=== PATIENT | female | born 1930 | race Hispanic/Latino ===

== ENCOUNTER 2016-06-14 08:37 | Emergency (ER) | payer MEDICARE, OTHER ==
[2016-06-14 08:41] VITALS: BMI 19.5
[2016-06-14] MEDS ORDERED: Lidocaine 1% Inj (20ml) SC STA (09:12)
[2016-06-14] MEDS ORDERED: TDAP Vaccine 0.5 mL Syr IM ONE (09:12)
[2016-06-14] MEDS ORDERED: Bacitracin Ointment 30 GM TUBE TOP STA (09:12)
--- NOTE | 2016-06-14 09:16 | ED PDOC ---
Arrival/HPI - General Chief Complaint: Trauma Time Seen by Provider: 06/14/16 08:39 Historian: Patient - History of Present Illness Narrative History of Present Illness (Text): 06/14/16 09:11 Sofia Coy is a 86 year old female, with a history of COPD, hypertension, CAD, sleep apnea, frequent falls, anxiety and depression, presents to the emergency department complaining of laceration and pain to posterior head s/p mechanical fall prior to arrival. Patient states she lost her balance and fell backward hitting her head on an unknown object. Denies any loss of consciousness. Patient usually ambulates with a walker, but was not using one at the time of fall. Patient lives with her son, who helped her after the fall and called the ambulance. Denies any dizziness, chest pain, difficulty breathing , back pain, neck pain, numbness to extremity, or any other complaints at this time. PMD: . Time/Duration: Prior to Arrival Symptom Onset: Sudden Severity Level: Mild Activities at Onset: Significant Context: Slipped Past Medical History - Provider Review Nursing Documentation Reviewed: Yes - Infectious Disease Hx of Infectious Diseases: None - Tetanus Immunization Tetanus Immunization: Unknown - Cardiac Hx W[place]: No Hx Hypertension: Yes - Pulmonary Hx Chronic Obstructive Pulmonary Disease (COPD): Yes - Neurological Hx Transient Ischemic Attacks (TIA): No - HEENT Hx HEENT Disorder: No - Renal Hx Renal Disorder: No - Endocrine/Metabolic Hx Diabetes Mellitus Type 1: No Hx Diabetes Mellitus Type 2: No - Hematological/Oncological Hx Blood Disorders: No - Integumentary Hx Dermatological Disorder: No - Musculoskeletal/Rheumatological Hx Falls: Yes - Gastrointestinal Hx Gastrointestinal Disorders: No - Genitourinary/Gynecological Hx Genitourinary Disorders: No Hx Sexually Transmitted Diseases: No - Psychiatric Hx Anxiety: Yes Hx Depression: Yes Hx Substance Use: No - Surgical History Hx Hysterectomy: Yes - Anesthesia Hx Anesthesia: Yes Hx Anesthesia Reactions: No Hx Malignant Hyperthermia: No - Suicidal Assessment Feels Threatened In Home Enviroment: No Family/Social History - Physician Review Nursing Documentation Reviewed: Yes Family/Social History: No Known Family HX Smoking Status: Former Smoker Hx Alcohol Use: No Hx Substance Use: No Hx Substance Use Treatment: No Allergies/Home Meds Allergies/Adverse Reactions: Allergies No Known Allergies Allergy (Verified 09/21/15 15:46) Home Medications: Home Meds Medication Instructions Recorded Confirmed Furosemide [Lasix] 20 mg PO DAILY 07/21/14 01/19/16 Carvedilol [Coreg] 3.125 mg PO BID 05/20/15 01/19/16 Isosorbide Mononitrate [Isosorbide 30 mg PO DAILY 05/20/15 06/14/16 Mononitrate ER] Fluticasone/Salmeterol 250/50 1 dsk IH DAILY 09/21/15 06/14/16 [Advair Diskus 250/50] Tiotropium [place] Inhaler 1 inhaler INH DAILY 09/21/15 01/19/16 [Spiriva Inhalation Handihaler Device] Fludrocortisone [Florinef Acetate] 0.1 mg PO DAILY 01/18/16 06/14/16 clonazePAM [Klonopin] 1 mg PO TID 01/19/16 01/18/16 Review of Systems - Physician Review All systems were reviewed & negative as marked: Yes - Review of Systems Constitutional: Normal. absent: Fatigue, Fevers Respiratory: Normal. absent: SOB, Cough, Sputum Cardiovascular: Normal. absent: Chest Pain, Palpitations Gastrointestinal: Normal. absent: Abdominal Pain, Diarrhea, Nausea, Vomiting Genitourinary Female: Normal Musculoskeletal: Normal. absent: Back Pain, Neck Pain Neurological: Other (lac to posterior head ) Psychiatric: Normal Physical Exam Vital Signs Reviewed: Yes Vital Signs Temp Pulse Resp BP Pulse Ox 06/14/16 11:53 99.2 F 78 19 112/65 96 06/14/16 10:31 98.2 F 74 17 123/67 98 06/14/16 08:38 98.2 F 77 18 124/66 94 L Temperature: Afebrile Blood Pressure: Normal Pulse: Regular Respiratory Rate: Normal Appearance: Positive for: Well-Appearing, Non-Toxic, Comfortable Pain Distress: None Mental Status: Positive for: Alert and Oriented X 3 - Systems Exam Head: Present: Normocephalic, Other (5 cm laceration to posterior head ) Pupils: Present: PERRL Extroacular Muscles: Present: EOMI Conjunctiva: Present: Normal Ears: Present: Normal Mouth: Present: Moist Mucous Membranes Pharnyx: Present: Normal Nose (External): Present: Atraumatic Neck: Present: Normal Range of Motion. No: MIDLINE TENDERNESS, Paraspinal Tenderness Respiratory/Chest: Present: Clear to Auscultation, Good Air Exchange. No: Respiratory Distress, Accessory Muscle Use Cardiovascular: Present: Regular Rate and Rhythm, Normal S1, S2. No: Murmurs Abdomen: Present: Normal Bowel Sounds. No: Tenderness, Distention, Peritoneal Signs, Rebound, Guarding Back: Present: Normal Inspection. No: CVA Tenderness, Midline Tenderness, Paraspinal Tenderness Upper Extremity: Present: Normal Inspection. No: Cyanosis, Edema Lower Extremity: Present: Normal Inspection. No: Edema Neurological: Present: GCS=15, CN II-XII Intact, Speech Normal, Motor Func Grossly Intact, Normal Sensory Function, Gait Normal (at baseline) Skin: Present: Warm, Dry, Normal Color. No: Rashes Psychiatric: Present: Alert, Oriented x 3, Normal Insight, Normal Concentration Medical Decision Making ED Course and Treatment: 06/14/16 09:21 Impression: A 86 year old female who presents to the emergency department complaining of pain and laceration to posterior head following mechanical fall. DDx: Head Injury with laceration r/o ICH r/o Fracture Plan: -- CT cervical spine -- CT Head -- Bacitracin -- Lidocaine -- Boostrix -- Reassess and disposition Progress Notes: 06/14/16 11:20 CT cervical spine reviewed: IMPRESSION: No acute fractures however chronic compression deformities of the C5, T1, T2, T3 and most notably the T4 segments as described. Mild multilevel degenerative spondylosis most notably affecting C5-C6 and C6-C7 disc space levels ; there is however multilevel bilateral foraminal stenosis. Low-attenuation focus left lobe thyroid gland for which thyroid ultrasound is suggested as follow-up. Note also made of cortical irregularity of the right clavicular head with overlying soft tissue prominence. Clinic correlation with physical exam recommended to exclude on localized inflammatory or infectious process CT HEAD results reviewed: IMPRESSION: Limited study due to motion artifact as well as partial exclusion of the anterior cortical margin and portion of the inner table frontal calvarium. No acute intra hemorrhage. Mild chronic white matter ischemic changes. Moderate volume loss. 06/14/16 11:42 PROCEDURE: LACERATION REPAIR Performed by the emergency provider Location: posterior head Length: 5 cm Anesthesia: 4 ml Lidocaine 1% without epi. Description: clean wound edges, no foreign bodies, no active bleeding. Exploration: The wound was explored and no foreign bodies were found. Procedure: The wound was closed with 11 riki. There was good approximation. Post-Procedure: Good closure and hemostasis. The patient tolerated the procedure well and there were no complications. Post procedure dressing applied. 06/14/16 12:00 Prior to discharge, we were able to get patient to stand up without dizziness or lightheadedness. She had a few steps but doesn't walk well without her walker. Daughter was helping. Daughter will help patient get follow up with her primary care doctor tin 1-2days and knows that she needs staple removal in 7- 10days. Gave daughter specific instructions for symptoms to look for after a head injury such as nausea/vomiting, change in mental status, seizures or any other concern. Daughter also confirmed that patient is not on blood thinners. - RAD Interpretation Narrative RAD Interpretations (Text): CT HEAD results reviewed: FINDINGS: HEMORRHAGE: No acute parenchymal, subarachnoid or extra-axial hemorrhage. BRAIN: mild chronic periventricular white matter ischemic changes are seen extending peripherally into the deep white matter both cerebral hemispheres. Mild vascular calcifications. VENTRICLES: Moderate generalized volume loss. No evidence of obstructive hydrocephalus. CALVARIUM: Note that a portion of the anterior cortical margin and the inner table of the frontal bone is partially excluded on on axial CT imaging due to patient positioning however no definitive evidence of acute fracture or depressed skull fractures are identified. PARANASAL SINUSES: There appears to be postoperative changes involving the nasal cavity and medial pastor both maxillary antra. Clinical correlation with surgical history recommended. MASTOID AIR CELLS: The sclerosis and under pneumatization of both mastoid air complexes right greater than left OTHER FINDINGS: None. IMPRESSION: Limited study due to motion artifact as well as partial exclusion of the anterior cortical margin and portion of the inner table frontal calvarium. No acute intra hemorrhage. Mild chronic white matter ischemic changes. Moderate volume loss. 06/14/16 11:19 CT Cervical Spine results reviewed: FINDINGS: VERTEBRAE: No acute compression fractures no retropulsed fragments so far as can be seen involving the cervical segments however there does appear to be chronic appearing anterior wedge deformity of the C5, T1, T2 T3 segments. Moderate chronic appearing compression deformity of the T4 segment. These deformities are likely on the etiology of the significant flexion deformity of the cervical spine. DISCS/SPINAL CANAL/NEURAL FORAMINA: Multilevel degenerative spondylosis. Changes include varying degrees of moderate to fairly significant disc space narrowing with endplate eburnation and anterolateral as well as smaller posterior osteophyte formation. Uncovertebral facet arthropathy the latter more significant than the former. Changes result and more significant bilateral foraminal stenosis and mild central canal narrowing at the C6 and C6-C7 levels and less so the remaining levels. PARASPINAL SOFT TISSUES: Unremarkable. Prevertebral and paraspinal soft tissues unremarkable. OTHER FINDINGS: Lung apices are clear. Small subpleural nodular density right lung apex Note made of an elliptical shaped low-attenuation focus with irregular borders left lobe thyroid gland. Followup thyroid ultrasound could be performed for further evaluation if necessary. Note also made of cortical irregularity of the right clavicular head with overlying soft tissue prominence. Clinic correlation with physical exam recommended to exclude on localized inflammatory or infectious process IMPRESSION: No acute fractures however chronic compression deformities of the C5, T1, T2, T3 and most notably the T4 segments as described. Mild multilevel degenerative spondylosis most notably affecting C5-C6 and C6-C7 disc space levels ; there is however multilevel bilateral foraminal stenosis. Low-attenuation focus left lobe thyroid gland for which thyroid ultrasound is suggested as follow-up. Note also made of cortical irregularity of the right clavicular head with overlying soft tissue prominence. Clinic correlation with physical exam recommended to exclude on localized inflammatory or infectious process Radiology Orders: 06/14/16 09:12 CERVICAL SPINE W/O CONTRAST [CT] Stat HEAD W/O CONTRAST [CT] Stat Electronics Research Engineer: Radiologist - Medication Orders Current Medication Orders: Discontinued Medications Bacitracin (Bacitracin) 0 gm TOP STAT STA Stop: 06/14/16 09:13 Last Admin: 06/14/16 09:22 Dose: 0.5 ml Lidocaine HCl (Lidocaine 1% (20ml)) 0 ml SC STAT STA Stop: 06/14/16 09:13 Last Admin: 06/14/16 09:23 Dose: 0.5 ml Tetanus/Reduced Diphtheria/Acell Pertussis (Boostrix Vaccine Inj) 0.5 ml IM .ONCE ONE Stop: 06/14/16 09:13 Last Admin: 06/14/16 09:20 Dose: 0.5 ml - Scribe Statement The provider has reviewed the documentation as recorded by the Robert Friedman Provider Attestation: All medical record entries made by the Robert were at my direction and personally dictated by me. I have reviewed the chart and agree that the record accurately reflects my personal performance of the history, physical exam, medical decision making, and the department course for this patient. I have also personally directed, reviewed, and agree with the discharge instructions and disposition. Disposition/Present on Arrival - Present on Arrival Any Indicators Present on Arrival: No History of DVT/PE: No History of Uncontrolled Diabetes: No Urinary Catheter: No History of Decub. Ulcer: No History Surgical Site Infection Following: None - Disposition Have Diagnosis and Disposition been Completed?: Yes Diagnosis: Fall, Head injury, Laceration Disposition: HOME/ ROUTINE Disposition Time: 12:07 Patient Plan: Discharge Condition: IMPROVED Discharge Instructions (ExitCare): Head Injury (ED), Staple Care (ED) Additional Instructions: Ms Coy and daughter, thank you for letting us take care of you today. Your provider was Dr. Nova. You were treated for Mechanical Fall, Head Injury with [place]. The emergency medical care you received today was directed at your acute symptoms. If you were prescribed any medication, please fill it and take as directed. It may take several days for your symptoms to resolve. Return to the Emergency Department if your symptoms worsen, do not improve, or if you have any other problems. Please contact your doctor or call one of the physicians/clinics you have been referred to that are listed on the Patient Visit Information form that is included in your discharge packet. Bring any paperwork you were given at discharge with you along with any medications you are taking to your follow up visit. Our treatment cannot replace ongoing medical care by a primary care provider (PCP) outside of the emergency department. Thank you for allowing the [facility] team to be part of your care today. If you had an X-Ray or CT scan: A Radiologist will review the ED reading if any change in treatment is needed we will contact you. If you had a blood, urine, or wound culture: It will take several days for the results, if any change in treatment is needed we will contact you. If you had an STI test: It will take 48 hours for the results. Please call after 1 week if you have not heard back. Referrals: Dion Carvalho MD [Family Provider] - Follow up with primary
--- NOTE | 2016-06-14 10:53 | CT ---
PROCEDURE: CT HEAD WITHOUT CONTRAST. HISTORY: fall with head injury COMPARISON: Comparison CT scan brain 09/21/2015 TECHNIQUE: Axial computed tomography images were obtained through the head/brain without intravenous contrast. Note that the examination is limited due to some motion artifact as well as partial exclusion of the anterior cortex and a portion of the inner table of the frontal calvarium due to patient positioning. Radiation dose: Total exam DLP = 725.84 mGy-cm. This CT exam was performed using one or more of the following dose reduction techniques: Automated exposure control, adjustment of the mA and/or kV according to patient size, and/or use of iterative reconstruction technique. FINDINGS: HEMORRHAGE: No acute parenchymal, subarachnoid or extra-axial hemorrhage. BRAIN: mild chronic periventricular white matter ischemic changes are seen extending peripherally into the deep white matter both cerebral hemispheres. Mild vascular calcifications. VENTRICLES: Moderate generalized volume loss. No evidence of obstructive hydrocephalus. CALVARIUM: Note that a portion of the anterior cortical margin and the inner table of the frontal bone is partially excluded on on axial CT imaging due to patient positioning however no definitive evidence of acute fracture or depressed skull fractures are identified. PARANASAL SINUSES: There appears to be postoperative changes involving the nasal cavity and medial pastor both maxillary antra. Clinical correlation with surgical history recommended. MASTOID AIR CELLS: The sclerosis and under pneumatization of both mastoid air complexes right greater than left OTHER FINDINGS: None. IMPRESSION: Limited study due to motion artifact as well as partial exclusion of the anterior cortical margin and portion of the inner table frontal calvarium. No acute intra hemorrhage. Mild chronic white matter ischemic changes. Moderate volume loss.
--- NOTE | 2016-06-14 11:06 | CT ---
PROCEDURE: CT Cervical Spine without contrast HISTORY: <fall with head injury> COMPARISON: None available. TECHNIQUE: Axial computed tomography images were obtained of the cervical spine without the use of intravenous contrast. Coronal and sagittal reformatted images were created and reviewed. Note that the study is limited due to flexion and rotation of the head to the right side with distortion of the cervical spine Radiation dose: Total exam DLP = 434.74 mGy-cm. This CT exam was performed using one or more of the following dose reduction techniques: Automated exposure control, adjustment of the mA and/or kV according to patient size, and/or use of iterative reconstruction technique. FINDINGS: VERTEBRAE: No acute compression fractures no retropulsed fragments so far as can be seen involving the cervical segments however there does appear to be chronic appearing anterior wedge deformity of the C5, T1, T2 T3 segments. Moderate chronic appearing compression deformity of the T4 segment. These deformities are likely on the etiology of the significant flexion deformity of the cervical spine. DISCS/SPINAL CANAL/NEURAL FORAMINA: Multilevel degenerative spondylosis. Changes include varying degrees of moderate to fairly significant disc space narrowing with endplate eburnation and anterolateral as well as smaller posterior osteophyte formation. Uncovertebral facet arthropathy the latter more significant than the former. Changes result and more significant bilateral foraminal stenosis and mild central canal narrowing at the C6 and C6-C7 levels and less so the remaining levels. PARASPINAL SOFT TISSUES: Unremarkable. Prevertebral and paraspinal soft tissues unremarkable. OTHER FINDINGS: Lung apices are clear. Small subpleural nodular density right lung apex Note made of an elliptical shaped low-attenuation focus with irregular borders left lobe thyroid gland. Followup thyroid ultrasound could be performed for further evaluation if necessary. Note also made of cortical irregularity of the right clavicular head with overlying soft tissue prominence. Clinic correlation with physical exam recommended to exclude on localized inflammatory or infectious process IMPRESSION: No acute fractures however chronic compression deformities of the C5, T1, T2, T3 and most notably the T4 segments as described. Mild multilevel degenerative spondylosis most notably affecting C5-C6 and C6-C7 disc space levels ; there is however multilevel bilateral foraminal stenosis. Low-attenuation focus left lobe thyroid gland for which thyroid ultrasound is suggested as follow-up. Note also made of cortical irregularity of the right clavicular head with overlying soft tissue prominence. Clinic correlation with physical exam recommended to exclude on localized inflammatory or infectious process
[2016-06-14 11:55] VITALS: BP 112/65; PULSE 78; RESP 19; TEMP 99.2; O2SAT 96
== END 2016-06-14 12:07 | disposition home or self-care (01) ==
LOC: ED 08:37
DX: S09.90XA Unspecified injury of head, initial encounter (principal); S01.91XA Laceration without foreign body of unspecified part of head, initial encounter; W19.XXXA Unspecified fall, initial encounter; Z91.81 History of falling; Z23 Encounter for immunization; I10 Essential (primary) hypertension; J44.9 Chronic obstructive pulmonary disease, unspecified; I25.10 Atherosclerotic heart disease of native coronary artery without angina pectoris

== ENCOUNTER 2016-06-21 09:18 | Emergency (ER) | payer MEDICARE, OTHER ==
[2016-06-21 09:29] VITALS: BP 118/73; PULSE 93; RESP 18; TEMP 99.2; O2SAT 94; BMI 21.9
--- NOTE | 2016-06-21 10:12 | ED PDOC ---
Arrival/HPI - General Chief Complaint: Suture/Staple Removal Time Seen by Provider: 06/21/16 09:51 Historian: Patient - History of Present Illness Narrative History of Present Illness (Text): 06/21/16 10:06 Patient presents for wound check and staple removal to the scalp, riki were placed 7 days ago. Denies any fever, chills, headache, pain, redness, swelling, discharge to the area. Past Medical History - Provider Review Nursing Documentation Reviewed: Yes - Infectious Disease Hx of Infectious Diseases: None - Tetanus Immunization Tetanus Immunization: Unknown - Reproductive Menopause: Yes - Cardiac Hx [place]: No Hx Hypertension: Yes - Pulmonary Hx Chronic Obstructive Pulmonary Disease (COPD): Yes - Neurological Hx Transient Ischemic Attacks (TIA): No - HEENT Hx HEENT Disorder: No - Renal Hx Renal Disorder: No - Endocrine/Metabolic Hx Diabetes Mellitus Type 1: No Hx Diabetes Mellitus Type 2: No - Hematological/Oncological Hx Blood Disorders: No - Integumentary Hx Dermatological Disorder: No - Musculoskeletal/Rheumatological Hx Falls: Yes - Gastrointestinal Hx Gastrointestinal Disorders: No - Genitourinary/Gynecological Hx Genitourinary Disorders: No Hx Sexually Transmitted Diseases: No - Psychiatric Hx Anxiety: Yes Hx Depression: Yes Hx Substance Use: No - Surgical History Hx Hysterectomy: Yes - Anesthesia Hx Anesthesia: Yes Hx Anesthesia Reactions: No Hx Malignant Hyperthermia: No - Suicidal Assessment Feels Threatened In Home Enviroment: No Family/Social History - Physician Review Nursing Documentation Reviewed: Yes Family/Social History: No Known Family HX Smoking Status: Former Smoker Hx Alcohol Use: No Hx Substance Use: No Hx Substance Use Treatment: No Allergies/Home Meds Allergies/Adverse Reactions: Allergies No Known Allergies Allergy (Verified 06/21/16 09:29) Home Medications: Home Meds Medication Instructions Recorded Confirmed Furosemide [Lasix] 20 mg PO DAILY 07/21/14 06/21/16 Carvedilol [Coreg] 3.125 mg PO BID 05/20/15 06/21/16 Isosorbide Mononitrate [Isosorbide 30 mg PO DAILY 05/20/15 06/21/16 Mononitrate ER] Fluticasone/Salmeterol 250/50 1 dsk IH DAILY 09/21/15 06/21/16 [Advair Diskus 250/50] Tiotropium [place] Inhaler 1 inhaler INH DAILY 09/21/15 06/21/16 [Spiriva Inhalation Handihaler Device] Fludrocortisone [Florinef Acetate] 0.1 mg PO DAILY 01/18/16 06/21/16 clonazePAM [Klonopin] 1 mg PO TID 01/19/16 06/21/16 Review of Systems - Review of Systems Constitutional: Normal. absent: Fatigue, Weight Change, Fevers Musculoskeletal: Normal. absent: Arthralgias, Back Pain, Neck Pain Skin: Normal, Laceration (prior laceration to scalp ). absent: Rash, Pruritis, Skin Lesions Neurological: Normal. absent: Headache, Dizziness, Focal Weakness Physical Exam Vital Signs Reviewed: Yes Vital Signs Temp Pulse Resp BP Pulse Ox 06/21/16 09:25 99.2 F 93 H 18 118/73 94 L Appearance: Positive for: Well-Appearing, Comfortable Pain Distress: None Mental Status: Positive for: Alert and Oriented X 3 - Systems Exam Head: Present: Atraumatic, Normocephalic, Other (healing stapled wound to the parietal scalp). No: Swelling, Ecchymosis, Abrasion Pupils: Present: PERRL Conjunctiva: Present: Normal Ears: Present: Normal Mouth: Present: Moist Mucous Membranes Pharnyx: Present: Normal. No: ERYTHEMA, EXUDATE Neck: Present: Normal Range of Motion. No: MIDLINE TENDERNESS, Paraspinal Tenderness Skin: Present: Warm, Dry, Normal Color. No: Rashes Medical Decision Making ED Course and Treatment: 06/21/16 10:09 86 yo F presents with wound check and staple removal to the parietal scalp. Milam removed by PA with no complications. Wound looks well with no signs of infection or wound dehiscence. Based on history and exam, plan will be for patient follow-up. Patient states she fully agrees with and understands discharge instructions. States that she agrees with the plan and disposition. Verbalized and repeated discharge instructions and plan. I have given the patient opportunity to ask any additional questions. Follow up with primary care physician in 1-2 days without fail. Return to the emergency room at any time for any new or worsening symptoms. - PA / VB NET DEVELOPER / Resident Statement MD/DO has reviewed & agrees with the documentation as recorded. Disposition/Present on Arrival - Present on Arrival Any Indicators Present on Arrival: No History of DVT/PE: No History of Uncontrolled Diabetes: No Urinary Catheter: No History of Decub. Ulcer: No History Surgical Site Infection Following: None - Disposition Have Diagnosis and Disposition been Completed?: Yes Diagnosis: Visit for wound check, Removal of staple Disposition: HOME/ ROUTINE Disposition Time: 10:13 Patient Plan: Discharge Condition: GOOD Discharge Instructions (ExitCare): Acute Wound Care (ED) Print Language: LAO Additional Instructions: Thank you for letting us take care of you today. You were treated for wound check, staple removal. The emergency medical care you received today was directed at your acute symptoms. Return to the Emergency Department if your symptoms worsen, do not improve, or if you have any other problems. Please contact your doctor in 2 days for re-evaluation and follow up. Bring any paperwork you were given at discharge with you along with any medications you are taking to your follow up visit. Our treatment cannot replace ongoing medical care by a primary care provider (PCP) outside of the emergency department. Thank you for allowing the [employer] team to be part of your care today.
== END 2016-06-21 10:30 | disposition home or self-care (01) ==
LOC: ED 09:18
DX: Z48.02 Encounter for removal of sutures (principal)

== ENCOUNTER 2017-04-18 19:00 | Inpatient (IN) | payer MEDICARE, OTHER ==
[2017-04-18 19:05] VITALS: BMI 30.9
--- NOTE | 2017-04-18 19:54 | ED PDOC ---
Arrival/HPI - General Chief Complaint: Female Genitourinary Time Seen by Provider: 04/18/17 19:04 Historian: Patient, Family, Other (transfer from OSH) - History of Present Illness Narrative History of Present Illness (Text): 87yoF, DNR, COPD, who uses O2 at night, with son and who was transferred from outside hospital for trip/fall on papers, landed on left side, without loc, with chest xray, left humerus, left shoulder xray showing left shoulder fracture with arm in sling, ct head chronic microvascular ischemic changes/ small chronic left subinsular infarct/no ICH, noted for has malodorous urine, ECG in SR, POC labs Gluc 130, Cr 1.0, AG 15, Trop 0.03, Na 137, K 4.3, CL 98, Co2 29, Lactate 2.02, Wbc 6.9, Hb 11, Plts 92, influenza neg, urine positive nitrite, given rocephin. pt now transferred here wo n/v/coker/dizziness/sob/chest pain/abdomen pain/numbness/tingling. 04/18/17 19:47 Time/Duration: 4-6 hours Symptom Onset: Gradual Symptom Course: Improving Quality: Aching Severity Level: 1 Activities at Onset: Rest Context: Sitting Past Medical History - Provider Review Nursing Documentation Reviewed: Yes - Travel History Have you recently traveled outside [place] w/in the past 3 mons?: No - Infectious Disease Hx of Infectious Diseases: None - Tetanus Immunization Tetanus Immunization: Unknown - Reproductive Menopause: Yes - Cardiac Hx [place]: No Hx Hypertension: Yes - Pulmonary Hx Chronic Obstructive Pulmonary Disease (COPD): Yes - Neurological Hx Transient Ischemic Attacks (TIA): No - HEENT Hx HEENT Disorder: No - Renal Hx Renal Disorder: No - Endocrine/Metabolic Hx Diabetes Mellitus Type 1: No Hx Diabetes Mellitus Type 2: No - Hematological/Oncological Hx Blood Disorders: No - Integumentary Hx Dermatological Disorder: No - Musculoskeletal/Rheumatological Hx Falls: Yes - Gastrointestinal Hx Gastrointestinal Disorders: No - Genitourinary/Gynecological Hx Genitourinary Disorders: No Hx Sexually Transmitted Diseases: No Hx Urinary Tract Infection: Yes - Psychiatric Hx Anxiety: Yes Hx Depression: Yes Hx Substance Use: No - Surgical History Hx Hysterectomy: Yes - Anesthesia Hx Anesthesia: Yes Hx Anesthesia Reactions: No Hx Malignant Hyperthermia: No - Suicidal Assessment Feels Threatened In Home Enviroment: No Family/Social History - Physician Review Nursing Documentation Reviewed: Yes Family/Social History: No Known Family HX Smoking Status: Former Smoker Hx Alcohol Use: No Hx Substance Use: No Hx Substance Use Treatment: No Allergies/Home Meds Allergies/Adverse Reactions: Allergies No Known Allergies Allergy (Verified 04/18/17 19:22) Home Medications: Home Meds Medication Instructions Recorded Confirmed Furosemide [Lasix] 20 mg PO DAILY 07/21/14 04/18/17 Carvedilol [Coreg] 3.125 mg PO BID 05/20/15 04/18/17 Isosorbide Mononitrate [Isosorbide 30 mg PO DAILY 05/20/15 04/18/17 Mononitrate ER] Fluticasone/Salmeterol 250/50 1 dsk IH DAILY 09/21/15 04/18/17 [Advair Diskus 250/50] Tiotropium [place] Inhaler 1 inhaler INH DAILY 09/21/15 04/18/17 [Spiriva Inhalation Handihaler Device] Fludrocortisone [Florinef Acetate] 0.1 mg PO DAILY 01/18/16 04/18/17 clonazePAM [Klonopin] 1 mg PO TID 01/19/16 04/18/17 Review of Systems - Review of Systems Constitutional: Normal Eyes: Normal ENT: Normal Respiratory: Normal Cardiovascular: Normal Gastrointestinal: Normal Genitourinary Female: Normal Musculoskeletal: Other (left shoulder fracture) Skin: Normal Neurological: Normal Endocrine: Normal Hemo/Lymphatic: Normal Psychiatric: Normal Physical Exam Vital Signs Reviewed: Yes Vital Signs Temp Pulse Resp BP Pulse Ox 04/18/17 21:08 83 18 99/60 L 96 04/18/17 19:16 88 20 95/52 L 97 04/18/17 19:08 98.6 F 86 18 95/48 L 95 Temperature: Afebrile Blood Pressure: Hypotensive Pulse: Regular Respiratory Rate: Normal Appearance: Positive for: Well-Appearing, Non-Toxic, Comfortable Pain Distress: None Mental Status: Positive for: Alert and Oriented X 3 - Systems Exam Head: Present: Atraumatic, Normocephalic Pupils: Present: PERRL Extroacular Muscles: Present: EOMI Conjunctiva: Present: Normal Ears: Present: Normal Mouth: Present: Moist Mucous Membranes Pharnyx: Present: Normal Nose (External): Present: Atraumatic Nose (Internal): Present: Normal Inspection Neck: Present: Normal Range of Motion, Other (no c-t-l spinal or paraspinal tenderness) Respiratory/Chest: Present: Clear to Auscultation, Good Air Exchange Cardiovascular: Present: Regular Rate and Rhythm Abdomen: No: Tenderness, Distention, Normal Bowel Sounds, Peritoneal Signs, Rebound, Guarding, McBurney's Point Tender, Rovsing's Sign Present, Hernias, Feeding Tubes, Ostomy Tubes, Mass/Organomegaly, Scars, Other Upper Extremity: Present: Other (left upper extremity in sling, with warm/ sensation/cap refill/radial pulse+ wo any other bony tenderness.) Lower Extremity: Present: Normal Inspection Neurological: Present: GCS=15, CN II-XII Intact, Speech Normal, Motor Func Grossly Intact Skin: Present: Warm, Normal Color Psychiatric: Present: Alert, Oriented x 3, Normal Insight, Normal Concentration Medical Decision Making ED Course and Treatment: 87yoF, DNR, COPD, who uses O2 at night, with son and who was transferred from outside hospital for trip/fall on papers, landed on left side, without loc, with chest xray, left humerus, left shoulder xray showing left shoulder fracture with arm in sling, ct head chronic microvascular ischemic changes/ small chronic left subinsular infarct/no ICH, noted for has malodorous urine, ECG in SR, POC labs Gluc 130, Cr 1.0, AG 15, Trop 0.03, Na 137, K 4.3, CL 98, Co2 29, Lactate 2.02, Wbc 6.9, Hb 11, Plts 92, influenza neg, urine positive nitrite, given rocephin. pt now transferred here wo n/v/coker/dizziness/sob/chest pain/abdomen pain/numbness/tingling for transferred/accepted by Dr. Johnson. loading CD rom with chest xray, left humerus, left shoulder xray showing left shoulder fracture with arm in sling, ct head chronic microvascular ischemic changes/small chronic left subinsular infarct/no ICH. Left shoulder left proximal humerus fracture Left humerus left proximal humerus fracture CXR FINDINGS: Limitations: Radiographic technique - mild. Lungs: Minimal patchy opacity right lung base. Pleural space: No definite pleural effusion. No pneumothorax. Heart: No cardiomegaly. Mediastinum: Apparent mild prominence of central pulmonary vasculature. Tortuosity and atherosclerosis of thoracic aorta. Bones/joints: No acute fracture. Tubes, lines and devices: Leads overlying chest. Upper abdomen: Surgical clips within RIGHT upper quadrant. IMPRESSION: 1. Probable mild pulmonary vascular congestion. Clinical correlation is needed. 2. Right basilar atelectasis versus early pneumonia. 3. Incidental/non-acute findings are described above. 04/18/17 20:30 wbc 6.8 hb 9 plts 90 lactic 0.9 trop indeterminate 0.05 calcium 7.7 04/18/17 21:00 04/18/17 21:[address] Carvalho, who stated 87F, left shoulder fracture, uti, questionable cxr - recieved 1gm rocephin outside hospital and can continue daily with cx's to follow, consult Dr. Alston orthopedcis who stated maintain sling and keep pt 30 degrees in bed, consult Dr. Whaley psychiatry for risperadone use in the am, admit to remote telemetry. 04/18/17 21:28 Reassessment Condition: Improved - Lab Interpretations Lab Results: 04/18/17 20:05 04/18/17 20:05 Lab Results 04/18/17 21:00: Urine Color Yellow, Urine Appearance Sl cloudy, Urine pH 6.5, Ur Specific [place] 1.020, Urine Protein 100 H, Urine Glucose (UA) Negative, Urine Ketones Negative, Urine Blood Small H, Urine Nitrate Positive H, Urine Bilirubin Negative, Urine Urobilinogen 1.0 H, Ur Leukocyte Esterase Moderate H, Urine RBC 2 - 5, Urine WBC 15 - 20, Ur Epithelial Cells Many, Urine Bacteria Mod 04/18/17 20:05: Sodium 138, Chloride 102, Potassium 3.7, Carbon Dioxide 28, Anion Gap 11, BUN 31 H, Creatinine 0.8, Est GFR ( Amer) > 60, Est GFR ( Non-Af Amer) > 60, Random Glucose 154 H, Calcium 7.7 L, Phosphorus 3.3, Magnesium 2.2, Total Bilirubin 0.5, AST 35, ALT 40, Alkaline Phosphatase 98, Total Creatine Kinase 148, Troponin I 0.05 D, Total Protein 5.8, Albumin 2.7 L , Globulin 3.2, Albumin/Globulin Ratio 0.8 L 04/18/17 20:05: pO2 223 H, VBG pH 7.46 H, VBG pCO2 42.0, VBG HCO3 29.9 H, VBG Total CO2 31.2 H, VBG O2 Sat (Calc) 100.3 H, VBG Base Excess 5.4 H, VBG Potassium 3.8, Sodium 135.0, Chloride 105.0, Glucose 160 H, Lactate 0.9, FiO2 21.0, Venous Blood Potassium 3.8 04/18/17 20:05: PT 15.1 H, INR 1.32 H, APTT 27.3 04/18/17 20:05: WBC 6.8 D, RBC 2.98 L, Hgb 9.4 L, Hct 28.5 L, MCV 95.6, MCH 31.5, MCHC 33.0, RDW 13.6, Plt Count 90 L, MPV 10.2, Gran % 80.2 H, Lymph % ( Auto) 7.5 L, [place] % (Auto) 12.2 H, Eos % (Auto) 0.0 L, Baso % (Auto) 0.1, Gran # 5.46, Lymph # (Auto) 0.5 L, [place] # (Auto) 0.8 H, Eos # (Auto) 0.0, Baso # ( Auto) 0.01 I have reviewed the lab results: Yes - RAD Interpretation Radiology Orders: 04/18/17 19:45 CHEST PORTABLE [RAD] Stat Front End Specialist: ED Physician (see mdm ct head, cxr, left shoulder, left humerus xray) - EKG Interpretation Interpreted by ED Physician: Yes (osh-SR, flipped t waves avr) Type: 12 lead EKG - Medication Orders Current Medication Orders: Acetaminophen (Tylenol 325mg Tab) 975 mg PO ONCE PRN PRN Reason: Fever >100.4 F Last Admin: 04/18/17 21:04 Dose: 975 mg Ceftriaxone Sodium (Rocephin 1 Gram Ivpb) 1 gm in 100 mls @ 100 mls/hr IVPB DAILY HI PRN Reason: Protocol Risperidone (Risperdal Tab) 0.5 mg PO STAT STA PRN Reason: Protocol Stop: 04/18/17 21:19 Disposition/Present on Arrival - Present on Arrival Any Indicators Present on Arrival: No History of DVT/PE: No History of Uncontrolled Diabetes: No Urinary Catheter: No History of Decub. Ulcer: No History Surgical Site Infection Following: None - Disposition Have Diagnosis and Disposition been Completed?: Yes Diagnosis: UTI (urinary tract infection), Closed fracture of left proximal humerus, Fall Disposition: HOSPITALIZED Disposition Time: 21:29 Patient Plan: Admission Condition: IMPROVED Referrals: [facility] Ian Repraveena, [Non-Staff] - Follow up with primary Forms: RADEUM (Korean)
[2017-04-18 20:19] LABS: BASO # 0.01 K/mm3 (0.0-2.0); BASO % 0.1 % (0.0-3.0); GRAN # 5.46 (1.4-6.5); GRAN % 80.2 % (50.0-68.0); HEMOGLOBIN 9.4 g/dL (12.0-16.0); LYMPH # 0.5 (1.2-3.4); LYMPH % 7.5 % (22.0-35.0); MEAN CELL VOLUME 95.6 fl (80.0-105.0); MEAN CORPUSCULAR HEMOGLOBIN 31.5 pg (25.0-35.0); MEAN PLATELET VOLUME 10.2 fl (7.0-11.0); MONO # 0.8 (0.1-0.6); MONO % 12.2 % (1.0-6.0); RBC 2.98 10^6/uL (3.5-6.1); RED CELL DISTRIBUTION WIDTH 13.6 % (11.5-14.5); VENOUS BLOOD GAS BASE EXCESS 5.4 mmol/L (0.0-2.0); VENOUS BLOOD GAS PO2 223 mm/Hg (30-55); VENOUS BLOOD PH 7.46 (7.32-7.43); WHITE BLOOD COUNT 6.8 10^3/ul (4.5-11.0)
[2017-04-18 20:29] LABS: ALB/GLOB RATIO 0.8 (1.1-1.8); ALBUMIN 2.7 g/dL (3.0-4.8); ALT/SGPT 40 U/L (7-56); AST/SGOT 35 U/L (14-36); BLOOD UREA NITROGEN 31 mg/dL (7-21); CALCIUM 7.7 mg/dL (8.4-10.5); GFR AFRICAN-AMERICAN > 60; GFR NON-AFRICAN AMERICAN > 60
[2017-04-18 20:34] LABS: INR 1.32 (0.93-1.08); PARTIAL THROMBOPLASTIN TIME 27.3 Seconds (25.1-36.5); PROTHROMBIN TIME 15.1 SECONDS (9.4-12.5)
[2017-04-18 20:41] LABS: TROPONIN I 0.05 ng/mL
[2017-04-18 21:11] LABS: PH,URINE 6.5 (4.7-8.0); URINE BILIRUBIN NEGATIVE (NEGATIVE); URINE BLOOD SMALL (NEGATIVE); URINE GLUCOSE (UA) NEGATIVE (NEGATIVE); URINE LEUKOCYTE ESTERASE MODERATE Leu/uL (NEGATIVE); URINE PROTEIN 100 mg/dL (<30 mg/dL)
[2017-04-18 21:18] LABS: URINE APPEARANCE SL CLOUDY (CLEAR); URINE COLOR YELLOW (YELLOW)
[2017-04-18 21:19] LABS: URINE BACTERIA MOD (NEG); URINE EPITHELIAL CELLS MANY /hpf (0-5); URINE WBC 15 - 20 /hpf (0-6)
--- NOTE | 2017-04-18 21:24 | RAD ---
EXAM: XR Chest, 1 View CLINICAL HISTORY: 87 years old, female; Screening exam; Other screening; Additional info: Sepsis patient TECHNIQUE: Frontal view of the chest. COMPARISON: DX - XR Chest 1 View Pa 2017-04-18 16:08 FINDINGS: Limitations: Radiographic technique - mild. Lungs: Minimal patchy opacity right lung base. Pleural space: No definite pleural effusion. No pneumothorax. Heart: No cardiomegaly. Mediastinum: Apparent mild prominence of central pulmonary vasculature. Tortuosity and atherosclerosis of thoracic aorta. Bones/joints: No acute fracture. Tubes, lines and devices: Leads overlying chest. Upper abdomen: Surgical clips within RIGHT upper quadrant. IMPRESSION: 1. Probable mild pulmonary vascular congestion. Clinical correlation is needed. 2. Right basilar atelectasis versus early pneumonia. 3. Incidental/non-acute findings are described above.
--- NOTE | 2017-04-19 08:29 | CP.PCM.HP ---
History of Present Illness - History of Present Illness History of Present Illness: This is an 87 year old female with history of atherosclerotic heart disease, chronic obstructive pulmonary disease, arthritis, depression, anxiety, and hypertension who fell at home yesterday and was taken to the Emergency Room at [facility] in [place]. She was found to have urinary tract infection and fracture of left humerus. This morning, she is seen in room 371 bed 2 with arm in sling. She denies pain. According to the son, she has had frequent falls recently. She denies chest pain and shortness of breath. Present on Admission - Present on Admission Any Indicators Present on Admission: No History of DVT/PE: No History of Uncontrolled Diabetes: No Urinary Catheter: No Decubitus Ulcer Present: No Review of Systems - Constitutional Constitutional: Frequent Falls. absent: Chills, Fever - Cardiovascular Cardiovascular: absent: Chest Pain, Diaphoresis, Dyspnea - Respiratory Respiratory: Excessive Mucous Production. absent: Dyspnea - Gastrointestinal Gastrointestinal: absent: Abdominal Pain, Nausea, Vomiting - Neurological Neurological: Frequent Falls Past Patient History - Infectious Disease Hx of Infectious Diseases: None - Tetanus Immunizations Tetanus Immunization: Unknown - Past Social History Smoking Status: Former Smoker - CARDIAC Hx Hypertension: Yes - PULMONARY Hx Chronic Obstructive Pulmonary Disease (COPD): Yes - NEUROLOGICAL Hx Transient Ischemic Attacks (TIA): No - HEENT Hx HEENT Problems: No - RENAL Hx Chronic Kidney Disease: No - ENDOCRINE/METABOLIC Hx Diabetes Mellitus Type 1: No Hx Diabetes Mellitus Type 2: No - HEMATOLOGICAL/ONCOLOGICAL Hx Blood Disorders: No - INTEGUMENTARY Hx Dermatological Problems: No - MUSCULOSKELETAL/RHEUMATOLOGICAL Hx Falls: Yes - GASTROINTESTINAL Hx Gastrointestinal Disorders: No - GENITOURINARY/GYNECOLOGICAL Hx Genitourinary Disorders: No Hx Sexually Transmitted Disorders: No Hx Urinary Tract Infection: Yes - PSYCHIATRIC Hx Anxiety: Yes Hx Depression: Yes Hx Substance Use: No - SURGICAL HISTORY Hx Hysterectomy: Yes - ANESTHESIA Hx Anesthesia: Yes Hx Anesthesia Reactions: No Hx Malignant Hyperthermia: No Meds Allergies/Adverse Reactions: Allergies Allergy/AdvReac Type Severity Reaction Status Date / Time No Known Allergies Allergy Verified 04/18/17 19:22 Physical Exam - Constitutional Appears: No Acute Distress - Head Exam Head Exam: ATRAUMATIC, NORMOCEPHALIC - Respiratory Exam Respiratory Exam: Clear to Auscultation Bilateral, NORMAL BREATHING PATTERN - Cardiovascular Exam Cardiovascular Exam: +S1, +S2 - GI/Abdominal Exam GI & Abdominal Exam: Normal Bowel Sounds, Soft. absent: Tenderness - Neurological Exam Neurological exam: Alert, Oriented x3 Results - Vital Signs Recent Vital Signs: Last Vital Signs Temp 98.6 F 04/18/17 19:08 Pulse 73 04/19/17 06:00 Resp 18 04/18/17 22:34 BP 99/60 L 04/18/17 22:34 Pulse Ox 96 04/18/17 21:08 - Labs Result Diagrams: 04/18/17 20:05 04/18/17 20:05 Assessment & Plan - Assessment and Plan (Free Text) Assessment: Left humerus fracture Urinary Tract infection COPD HTN Hypotension ASHD Arthritis Depression Anxiety Plan: Patient is admitted for left humerus fracture and urinary tract infection. continue IV Rocephin and awaiting results of urine culture. Patient has been seen by Dr. Villatoro, orthopedic surgeon, for fracture of humerus. continue Coreg and Imdur for atherosclerotic heart disease. continue Florinef for hypotension. continue respiratory treatments for COPD and will consult pulmonary as patient complains of bringing up mucus. Patient with anemia. Will check iron, B12, folate levels as well as stool for occult blood. Consult Dr. Sen for depression and anxiety. Patient has had frequent falls recently and will most likely need MARIA DOLORES for gait training and strengthening.
[2017-04-19 08:55] LABS: IRON 18 ug/dL (45-180)
[2017-04-19 09:03] LABS: % IRON SATURATION 11 % (20-55); TOTAL IRON BINDING CAPACITY 170 ug/dL (265-497)
--- NOTE | 2017-04-19 09:45 | RAD ---
PROCEDURE: Radiographs of the Left Shoulder HISTORY: Left shoulder fracture COMPARISON: No prior. FINDINGS: BONES: There is an acute comminuted impacted fracture in the neck of the humerus without significant angulation. There is diffuse bone demineralization. Bone alignment is normal. JOINTS: There is mild degenerative osteoarthrosis in the acromioclavicular and glenohumeral joints. SOFT TISSUES: Normal. OTHER FINDINGS: None. IMPRESSION: Acute comminuted impacted fracture in the neck of the humerus. No dislocation.
--- NOTE | 2017-04-19 09:50 | CARD ---
APPROVED REPORT EKG Measurement Heart [id number] <Conclusion> Normal sinus rhythm Possible Anterior infarct, age undetermined Abnormal ECG
[2017-04-19] MEDS: Tiotropium 18 mcg Cap For Inhalation INH SCH (10:33)
[2017-04-19] MEDS: cefTRIAXone 1 gm 1 GM/100 ML BAG IVPB SCH (10:54)
[2017-04-19 13:15] LABS: FOLATE 17.6 ng/mL
[2017-04-19] MEDS: Albuterol-Ipratrop 3 mg / 0.5 (3 ml) UD IH SCH ×2 (13:25→20:24)
[2017-04-19] MEDS: Venlafaxine 37.5 mg ER Cap PO SCH (18:17)
--- NOTE | 2017-04-19 18:39 | CON ---
DATE: 04/19/2017 PULMONARY CONSULTATION REASON FOR CONSULTATION: Chronic obstructive pulmonary disease. REFERRING PHYSICIAN: Ghulam Carvalho MD. HISTORY OF PRESENT ILLNESS: History is obtained via extensive discussion with the nurse. I have also reviewed the chart at length, and discussed the case with the patient at length. The patient is an 87-year-old chronically ill female, with past medical history significant for advanced chronic obstructive pulmonary disease, on home oxygen; coronary artery disease; arthritis; frequent falls, who presents to [facility] after falling at home. Apparently, the patient was ambulating at home, tripped and fell. She landed on her left side - with the predominant amount of pain being in her left shoulder. She then was brought to [facility] for additional evaluation. In the emergency room, the patient was noted to have a left humeral fracture. She was thus admitted for additional evaluation. The patient is not short of breath at rest. She does have chronic occasional dyspnea on exertion. She also has a chronic occasional cough with no significant sputum production. There is no history of chest pain, coughing up of blood, or chest pain - made worse with deep respirations. There is no history of temperatures, chills, or infectious exposure. There is no history of night sweats, weight loss, or appetite change prior to the above events. No history of leg or calf pains. No history of syncope or diaphoresis. No history of recent travel. REVIEW OF SYSTEMS: No history of nausea, vomiting, or diarrhea. No acute urinary symptoms. Rest of the review of systems negative. ALLERGIES: NO KNOWN ALLERGIES. SOCIAL HISTORY: Positive for tobacco and negative for alcohol. FAMILY HISTORY: No inheritable diseases. HOME MEDICATIONS: Include Risperdal, Klonopin, Spiriva, isosorbide mononitrate, Lasix, Advair, Florinef, and Coreg. PHYSICAL EXAMINATION: GENERAL: The patient appears comfortable at rest. She is not short of breath. VITAL SIGNS: Temperature is 98.6, pulse 73, respirations 18, blood pressure 99/60. Oxygen saturation on nasal cannula is 96%. HEENT: Normocephalic, atraumatic. No JVD. CARDIOVASCULAR: Systolic ejection murmur at the lower left sternal border. No S3 gallop. LUNGS: Decreased breath sounds at the bases. Minimal rhonchi. No wheezing. EXTREMITIES: The left upper extremity is in a sling. The lower extremities show mild edema. No cyanosis or clubbing. Calves are nontender to palpation. GASTROINTESTINAL: Abdomen is soft, nontender, and nondistended. Bowel sounds are positive. SKIN: No acute rash. NEUROLOGIC: Limited at the present time. PERTINENT LABORATORY DATA: Chest x-ray was done and reviewed. There is a minimal linear opacity noted at the right base - most consistent with atelectasis. CBC: White count 6.8, hemoglobin 9.4, hematocrit 28.5, platelets of 90,000. Complete metabolic profile: BUN 31, glucose 154, calcium 7.7, troponin 0.05, albumin 2.7. Rest of the metabolic profile is within normal limits. IMPRESSION: 1. Advanced chronic obstructive pulmonary disease. 2. Minimal atelectasis - right base. 3. Fracture of left humerus, status post fall at home. 4. Anemia. 5. Coronary artery disease. PLAN: Again, I did discuss the case with the patient and nurse at length. The patient presents to [facility] after falling at home. Apparently, she was walking and then tripped and fell. She then landed on her left side - predominately on her left shoulder. In the emergency room, the patient was noted to have a left humeral fracture. She was thus admitted for additional evaluation. At the present time, the patient offers no new or significant pulmonary complaints. She has minimal bronchospasm on physical exam. Oxygen saturation on nasal cannula is 96%. I will continue with the current pulmonary medications ordered. I did review the chest x-ray as above. The chest x-ray shows a minimal linear opacity at the right base - most consistent with atelectasis. However, I will also order a procalcitonin level - to try and rule out an acute pneumonia. Keep in mind, there is no history of temperatures. There is no leukocytosis. The patient does feel better and is clinically improved this morning. Additional a.m. labs are pending. Orthopedic evaluation has been ordered. Additional pulmonary intervention will be based on the above results, as well as the clinical status of the patient. I will discuss the above with Dr. Carvalho later this morning. Thank you very much for this pulmonary consultation. Ludwin Sanchez MD [facility] # [id number] ALE[facility]
--- NOTE | 2017-04-19 19:20 | CON ---
DATE: 04/19/2017 ORTHOPEDIC CONSULT HISTORY OF PRESENT ILLNESS: An 87-year-old female in room 371, bed 2. States that she slipped and fell at home yesterday, went to an outlined ER, said that she had a fracture of the left shoulder, so she came to [facility] to be admitted .under service. X-rays show a possible left humerus fracture, displaced with compatible for conservative therapy. Right now, she is admitted, in the bed. We are going to elevate the head of the bed, put in a left arm sling, repeat the x-rays to make sure the fracture did not change from initial x-ray 24 hours ago and plan to send her to subacute rehab and we took a tight ring off the left hand on the ring finger and put it in security. We will repeat the x-ray, keep in arm sling, elevate the head of the bed, strict no weight on the left arm, and do physical therapy to get up out of bed and ambulate with assistance. I will follow her and treat her conservatively for the left proximal humerus fracture. Devin Villatoro DO ALEIDA
[2017-04-19] MEDS: Budesonide 0.5 mg/2 ml Inhal Susp UD IH SCH (20:24)
[2017-04-20] MEDS: Albuterol-Ipratrop 3 mg / 0.5 (3 ml) UD IH SCH ×4 (05:03→20:19)
[2017-04-20 06:30] LABS: BASO # 0.01 K/mm3 (0.0-2.0); BASO % 0.2 % (0.0-3.0); EOS % 0.6 % (1.5-5.0); GRAN # 3.3 (1.4-6.5); GRAN % 68.5 % (50.0-68.0); HEMOGLOBIN 9.9 g/dL (12.0-16.0); LYMPH # 0.7 (1.2-3.4); LYMPH % 15.1 % (22.0-35.0); MEAN CELL VOLUME 96.9 fl (80.0-105.0); MEAN CORPUSCULAR HEMOGLOBIN 30.9 pg (25.0-35.0); MEAN CORPUSCULAR HGB CONC 31.9 g/dl (31.0-37.0); MEAN PLATELET VOLUME 10.5 fl (7.0-11.0); MONO # 0.8 (0.1-0.6); MONO % 15.6 % (1.0-6.0); RBC 3.2 10^6/uL (3.5-6.1); RED CELL DISTRIBUTION WIDTH 13.6 % (11.5-14.5); WHITE BLOOD COUNT 4.8 10^3/ul (4.5-11.0)
[2017-04-20] MEDS: Budesonide 0.5 mg/2 ml Inhal Susp UD IH SCH ×2 (07:28→20:19)
[2017-04-20 07:44] LABS: ALB/GLOB RATIO 0.8 (1.1-1.8); ALBUMIN 2.6 g/dL (3.0-4.8); ALT/SGPT 34 U/L (7-56); AST/SGOT 38 U/L (14-36); BLOOD UREA NITROGEN 22 mg/dL (7-21); CALCIUM 8.2 mg/dL (8.4-10.5); GFR AFRICAN-AMERICAN > 60; GFR NON-AFRICAN AMERICAN > 60
--- NOTE | 2017-04-20 08:04 | CP.PCM.PN ---
Subjective - Date & Time of Evaluation Date of Evaluation: 04/20/17 Time of Evaluation: 07:00 - Subjective Subjective: Patient is seen this morning. She is lying in bed with sling on her left arm. Objective - Vital Signs/Intake and Output Vital Signs (last 24 hours): Temp Pulse Resp BP Pulse Ox 98.1 F 89 20 112/74 98 04/20/17 06:00 04/20/17 06:00 04/20/17 06:00 04/20/17 06:00 04/20/17 06:00 Intake and Output: 04/20/17 04/20/17 06:59 18:59 Intake Total 120 Output Total 0 Balance 120 - Medications Medications: Current Medications Acetaminophen (Tylenol 325mg Tab) 975 mg PO ONCE PRN PRN Reason: Fever >100.4 F Last Admin: 04/18/17 21:04 Dose: 975 mg Acetaminophen (Tylenol 325mg Tab) 650 mg PO Q4H PRN PRN Reason: Fever >100.4 F Last Admin: 04/19/17 15:41 Dose: 650 mg Albuterol/Ipratropium (Duoneb 3 Mg/0.5 Mg (3 Ml) Ud) 3 ml IH [id number] [facility] Last Admin: 04/20/17 07:28 Dose: 3 ml Budesonide (Pulmicort Respules) 0.5 mg IH [id number] [facility] Last Admin: 04/20/17 07:28 Dose: 0.5 mg Carvedilol (Coreg) 3.125 mg PO BID [facility] Last Admin: 04/19/17 18:22 Dose: Not Given Clonazepam (Klonopin) 1 mg PO TID [facility] PRN Reason: Protocol Last Admin: 04/19/17 18:17 Dose: 1 mg Fludrocortisone Acetate (Florinef) 0.1 mg PO DAILY [facility] Last Admin: 04/19/17 10:32 Dose: 0.1 mg Furosemide (Lasix) 20 mg PO DAILY [facility] Last Admin: 04/19/17 12:48 Dose: Not Given Ceftriaxone Sodium (Rocephin 1 Gram Ivpb) 1 gm in 100 mls @ 100 mls/hr IVPB DAILY [facility] PRN Reason: Protocol Last Admin: 04/19/17 10:54 Dose: 100 mls/hr Isosorbide Mononitrate (Imdur Er) 30 mg PO DAILY [facility] Last Admin: 04/19/17 10:32 Dose: 30 mg Methylphenidate HCl (Ritalin) 5 mg PO DAILY [facility] Last Admin: 04/19/17 15:41 Dose: 5 mg Risperidone (Risperdal Tab) 0.5 mg PO [facility] PRN Reason: Protocol Last Admin: 04/19/17 22:57 Dose: Not Given Tiotropium [place] (Spiriva) 18 mcg INH DAILY [facility] Last Admin: 04/19/17 10:33 Dose: 18 mcg Venlafaxine HCl (Effexor Xr) 37.5 mg PO BID [facility] Last Admin: 04/19/17 18:17 Dose: 37.5 mg - Labs Labs: 04/20/17 05:44 04/20/17 05:44 PT 15.1 SECONDS (9.4-12.5) H 04/18/17 20:05 INR 1.32 (0.93-1.08) H 04/18/17 20:05 APTT 27.3 Seconds (25.1-36.5) 04/18/17 20:05 - Constitutional Appears: No Acute Distress - Head Exam Head Exam: ATRAUMATIC, NORMOCEPHALIC - Respiratory Exam Respiratory Exam: Clear to Ausculation Bilateral, NORMAL BREATHING PATTERN - Cardiovascular Exam Cardiovascular Exam: +S1, +S2 - GI/Abdominal Exam GI & Abdominal Exam: Soft, Normal Bowel Sounds. absent: Tenderness - Neurological Exam Neurological Exam: Alert, Awake, Oriented x3 Assessment and Plan - Assessment and Plan (Free Text) Assessment: Left humerus fracture UTI with gram positive cocci HTN Advanced COPD Anxiety/Depression ASHD Plan: Urine culture is growing gram positive cocci. awaiting identification and sensitivity. continue Rocephin for UTI. continue respiratory treatments and oxygen for COPD. Patient's hemoglobin is ranging between 9 and 10. Folate levels and iron are low. Will order folic acid supplementation. Will order iron infusion tomorrow. Patient to have physical therapy for left humerus fracture and unsteady gait. She will need to go to [facility].
[2017-04-20] MEDS: cefTRIAXone 1 gm 1 GM/100 ML BAG IVPB SCH (09:37)
[2017-04-20] MEDS: Tiotropium 18 mcg Cap For Inhalation INH SCH (09:40)
[2017-04-20] MEDS: Venlafaxine 37.5 mg ER Cap PO SCH ×2 (09:40→18:12)
--- NOTE | 2017-04-20 12:48 | PN ---
DATE: 04/20/2017 PULMONARY NOTE SUBJECTIVE: The patient appears comfortable this morning. She is not short of breath at rest. OBJECTIVE VITAL SIGNS: Temperature is 98.1, pulse 89, respirations 18, blood pressure 112/74. Oxygen saturation on nasal cannula is 98%. HEENT: Normocephalic, atraumatic. NECK: No JVD. CARDIOVASCULAR: Systolic ejection murmur at the lower left sternal border. No S3 gallop. LUNGS: Decreased breath sounds at the bases. Minimal/less rhonchi. No wheezing. EXTREMITIES: The left upper extremity is in a sling. The lower extremities show mild edema. There is no cyanosis or clubbing. Calves are nontender to palpation. GASTROINTESTINAL: Abdomen is soft, nontender and nondistended. Bowel sounds are positive. SKIN: No acute rash. NEUROLOGIC: Exam limited at the present time. PERTINENT LABORATORY DATA: Procalcitonin was done yesterday and reviewed. It is elevated at 5.55. IMPRESSION 1. Advanced chronic obstructive pulmonary disease. 2. Atelectasis versus pneumonia - right base. 3. Left humeral fracture, status post fall at home. 4. Anemia. 5. Coronary artery disease. PLAN: The patient appears comfortable this morning. She is not short of breath at rest. She does state to feeling better overall. On physical exam, her bronchospasm is less. In addition, the oxygen saturation on nasal cannula is 98%. I will continue with the current nebulizer treatments and inhaled steroids for now. As noted above, the procalcitonin is elevated. I would continue with the antibiotic coverage for now. Temperatures are resolving. There is no leukocytosis. I would continue with the orthopedic evaluation as per Dr. Villatoro. His input is noted. Psychiatric evaluation with Dr. Sen has also been ordered. Clinical status of the patient is definitely improved - compared to the initial presentation. However, the overall status/prognosis for this elderly patient does remain guarded. I will discuss the above with the attending physician. Ludwin Sanchez MD [facility]
--- NOTE | 2017-04-20 12:50 | PN ---
DATE: 04/20/2017 The patient is followed for left shoulder fracture. X-ray is finally seen, it is comminuted fracture, not dislocated, so she needs a left arm sling for at least six weeks until the fracture consolidates and has to be without a sling. Does not need therapy. Needs no weight on the left shoulder. To sleep sitting up and I will follow her closely and I will try to follow her when she leaves the hospital. She goes to a subacute rehab that is in [facility] DIAGNOSES: Comminuted fracture of proximal humerus compatible with conservative therapy. As long as she does not do any active motion and no weight on the shoulder, to wear shoulder sling and sleep sitting up, she will have to ambulate with assistance because she usually needs a walker due to weakness will see if she can get by with just cane in the right hand. Devin Villatoro DO MTDD
--- NOTE | 2017-04-20 23:15 | CON ---
DATE: 04/20/2017 PSYCHIATRIC CONSULTATION HISTORY OF PRESENT ILLNESS: The patient is an 87-year-old white female. I reviewed the chart. I spoke with the patient at length. Patient has been admitted for a fracture of her left shoulder, specifically has an acute comminuted impacted fracture of neck of the left humerus. Patient has also urinary tract infections. I have know this patient for 20 years. She has a long history of recurrent major depression and posttraumatic stress disorder. PAST MEDICAL HISTORY: Includes hypertension, COPD, gait dysfunction and osteoarthritis and hearing impairment. PERSONAL HISTORY: She is a . She lives with one of her sons. She has one daughter who from anorexia nervosa many, many years ago. She has another son,who is schizophrenic, who lives in a long term. She has another daughter, who lives in [place]. Patient has no history of alcohol or substance abuse. Patient's current x-rays of the shoulder an acute comminuted impacted fracture of neck of the left humerus with no dislocation. 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 She also had areas of moderate degree of microvascular ischemic changes. CURRENT LABORATORY DATA: Currently her white count is 4800, hemoglobin is 9.9, platelet count 101,000. Her absolute granulocyte count is 3300. Patient's general chemistries currently today reveal normal sodium, potassium, chloride, CO2, anion gap. BUN is 22, creatinine is 0.8, estimated GFR greater than 60. Random glucose 98, calcium 8.2, total bilirubin, alkaline phosphatase, CPK, troponin I level is 0.05. Patient's albumin is 2.6. Patient's B12 is normal, procalcitonin is 5.55. Folate is 17.6. CURRENT MEDICATIONS: Include Colace, Coreg, Duoneb treatments, Effexor XR 37.5 mg b.i.d. She is receiving Klonopin 1 mg t.i.d., Lasix 20 mg daily, Rocephin IVP, Spiriva. She receives Ritalin 5 mg daily. Patient is on Pulmicort Respules. She receives Risperdal 0.5 mg at bedtime. REVIEW OF SYSTEMS: She has shoulder pain especially when she moves. She also has some slight shortness of breath. She has joint pain. Patient's other 12-point review is noncontributory. PHYSICAL EXAMINATION: VITAL SIGNS: Blood pressure 112/68, pulse 91, afebrile, respirations 18 per minute, O2 saturation 97% on room air. MENTAL STATUS EXAM: Currently, psychiatrically her mental status is as follows. She is awake. She is alert. She is coherent. She recognizes me. She is oriented x3. She is somewhat anxious, slightly depressed. No suicidal ideation or psychotic symptoms. Her sensorium is generally clear. Patient's recent memory has mild impairment. She is slightly hard of hearing, but able to carry on a rational conversation and understands the nature of her condition and the proposed treatment and transfer to subacute rehab. IMPRESSION: She has acute comminuted left humeral neck fracture. She has history of recurrent major depressive disorder, history of posttraumatic stress disorder, hypertension, chronic obstructive pulmonary disease, ostearthritis, gait dysfunction. PLAN: I chalo review her records in my office to see the doses of Klonopin that she is getting, if necessary I will lower the dose. She will continue other medication. I will reevaluate p.r.n. Charles Sen MD [facility]
[2017-04-21] MEDS: Albuterol-Ipratrop 3 mg / 0.5 (3 ml) UD IH SCH ×4 (01:32→19:47)
[2017-04-21 06:49] LABS: BASO # 0.01 K/mm3 (0.0-2.0); BASO % 0.2 % (0.0-3.0); EOS # 0.1 (0.0-0.7); EOS % 1.1 % (1.5-5.0); GRAN # 4.61 (1.4-6.5); GRAN % 74.2 % (50.0-68.0); HEMOGLOBIN 10.3 g/dL (12.0-16.0); LYMPH % 15.8 % (22.0-35.0); MEAN PLATELET VOLUME 10.4 fl (7.0-11.0); MONO # 0.5 (0.1-0.6); MONO % 8.7 % (1.0-6.0); RBC 3.32 10^6/uL (3.5-6.1); RED CELL DISTRIBUTION WIDTH 13.6 % (11.5-14.5); WHITE BLOOD COUNT 6.2 10^3/ul (4.5-11.0)
[2017-04-21] MEDS: Budesonide 0.5 mg/2 ml Inhal Susp UD IH SCH ×2 (07:24→19:47)
[2017-04-21 07:33] LABS: ALB/GLOB RATIO 0.8 (1.1-1.8); ALBUMIN 2.7 g/dL (3.0-4.8); ALT/SGPT 40 U/L (7-56); AST/SGOT 47 U/L (14-36); BLOOD UREA NITROGEN 23 mg/dL (7-21); CALCIUM 8.5 mg/dL (8.4-10.5); GFR AFRICAN-AMERICAN > 60; GFR NON-AFRICAN AMERICAN > 60
--- NOTE | 2017-04-21 09:02 | CP.PCM.PN ---
Subjective - Date & Time of Evaluation Date of Evaluation: 04/21/17 Time of Evaluation: 08:15 - Subjective Subjective: Patient is seen this morning. She complains of pain in her left arm. Objective - Vital Signs/Intake and Output Vital Signs (last 24 hours): Temp Pulse Resp BP Pulse Ox 99 F 80 20 145/79 97 04/21/17 07:53 04/21/17 07:53 04/21/17 07:53 04/21/17 07:53 04/21/17 07:53 Intake and Output: 04/21/17 04/21/17 06:59 18:59 Intake Total 120 Balance 120 - Medications Medications: Current Medications Acetaminophen (Tylenol 325mg Tab) 650 mg PO Q4H PRN PRN Reason: Fever >100.4 F Last Admin: 04/19/17 15:41 Dose: 650 mg Acetaminophen (Tylenol 325mg Tab) 650 mg PO Q4H PRN PRN Reason: Pain, moderate (4-7) Last Admin: 04/20/17 18:10 Dose: 650 mg Albuterol/Ipratropium (Duoneb 3 Mg/0.5 Mg (3 Ml) Ud) 3 ml IH [id number] [facility] Last Admin: 04/21/17 07:24 Dose: 3 ml Budesonide (Pulmicort Respules) 0.5 mg IH [id number] [facility] Last Admin: 04/21/17 07:24 Dose: 0.5 mg Carvedilol (Coreg) 3.125 mg PO BID [facility] Last Admin: 04/20/17 18:10 Dose: Not Given Clonazepam (Klonopin) 1 mg PO 1200,2200 [facility] Last Admin: 04/21/17 00:15 Dose: Not Given Docusate Sodium (Colace) 100 mg PO BID [facility] Last Admin: 04/20/17 18:12 Dose: 100 mg Ferrous Sulfate (Feosol) 324 mg PO BID [facility] Last Admin: 04/20/17 18:11 Dose: 324 mg Fludrocortisone Acetate (Florinef) 0.1 mg PO DAILY [facility] Last Admin: 04/20/17 09:38 Dose: 0.1 mg Folic Acid (Folic Acid) 1 mg PO DAILY [facility] Furosemide (Lasix) 20 mg PO DAILY [facility] Last Admin: 04/20/17 09:41 Dose: Not Given Ceftriaxone Sodium (Rocephin 1 Gram Ivpb) 1 gm in 100 mls @ 100 mls/hr IVPB DAILY [facility] PRN Reason: Protocol Last Admin: 04/20/17 09:37 Dose: 100 mls/hr Isosorbide Mononitrate (Imdur Er) 30 mg PO DAILY [facility] Last Admin: 04/20/17 09:39 Dose: Not Given Methylphenidate HCl (Ritalin) 5 mg PO 0800,1400 [facility] Last Admin: 04/21/17 08:33 Dose: 5 mg Risperidone (Risperdal Tab) 0.5 mg PO HS [facility] PRN Reason: Protocol Last Admin: 04/20/17 22:00 Dose: Not Given Tiotropium [place] (Spiriva) 18 mcg INH DAILY [facility] Last Admin: 04/20/17 09:40 Dose: 18 mcg Venlafaxine HCl (Effexor Xr) 37.5 mg PO BID [facility] Last Admin: 04/20/17 18:12 Dose: 37.5 mg - Labs Labs: 04/21/17 06:41 04/21/17 06:41 PT 15.1 SECONDS (9.4-12.5) H 04/18/17 20:05 INR 1.32 (0.93-1.08) H 04/18/17 20:05 APTT 27.3 Seconds (25.1-36.5) 04/18/17 20:05 - Constitutional Appears: No Acute Distress - Head Exam Head Exam: ATRAUMATIC, NORMOCEPHALIC - Respiratory Exam Respiratory Exam: Clear to Ausculation Bilateral, NORMAL BREATHING PATTERN - Cardiovascular Exam Cardiovascular Exam: +S1, +S2 - GI/Abdominal Exam GI & Abdominal Exam: Soft, Normal Bowel Sounds. absent: Tenderness - Extremities Exam Extremities Exam: Normal Inspection - Neurological Exam Neurological Exam: Alert, Awake, Oriented x3 Assessment and Plan - Assessment and Plan (Free Text) Assessment: Left humerus fracture COPD HTN UTI ASHD depression/anxiety Plan: Patient is on Rocephin for urinary tract infection. awaiting sensitivity to come back. will repeat urinalysis. continue PT. tylenol as needed for pain. Patient to go to [facility] for rehab.
--- NOTE | 2017-04-21 09:26 | PN ---
DATE: 04/21/2017 SUBJECTIVE: The patient appears comfortable this morning. She is not short of breath at rest. PHYSICAL EXAMINATION VITAL SIGNS: Temperature is 98.7, pulse 93, respirations 18, blood pressure 112/67. Oxygen saturation on nasal cannula is 97%. HEENT: Normocephalic, atraumatic. NECK: No JVD. CARDIOVASCULAR: Systolic ejection murmur at the lower left sternal border. No S3 gallop. LUNGS: Decreased breath sounds at the bases. Very minimal/less rhonchi. No wheezing. EXTREMITIES: The left upper extremity is in a sling. The lower extremities show mild edema. There is no cyanosis or clubbing. Calves are nontender to palpation. GASTROINTESTINAL: Abdomen is soft, nontender and nondistended. Bowel sounds are positive. SKIN: No acute rash. NEUROLOGIC: Exam limited at the present time. IMPRESSION 1. Advanced chronic obstructive pulmonary disease. 2. Atelectasis versus pneumonia - right base. 3. Left humeral fracture, status post fall at home. 4. Anemia. 5. Coronary artery disease. PLAN: The patient appears comfortable this morning. She is not short of breath at rest. She does state to feeling better overall. On physical exam, there is no significant bronchospasm noted. In addition, there is no significant alveolar-arterial gradient. I will continue with the current pulmonary medications for now. The patient remains on antibiotic therapy. The temperatures have now resolved. There is no leukocytosis. Input by Orthopedics (Dr. Villatoro) is also noted. Clinical status of the patient is certainly improved - compared to the initial presentation. Repeat morning labs are pending. I will discuss the above with the attending physician. Ludwin Sanchez MD MTDSylvia
[2017-04-21] MEDS: Tiotropium 18 mcg Cap For Inhalation INH SCH (11:03)
[2017-04-21] MEDS: Venlafaxine 37.5 mg ER Cap PO SCH ×2 (11:04→18:41)
[2017-04-22] MEDS: Albuterol-Ipratrop 3 mg / 0.5 (3 ml) UD IH SCH ×3 (02:37→13:14)
[2017-04-22] MEDS: Budesonide 0.5 mg/2 ml Inhal Susp UD IH SCH (07:15)
--- NOTE | 2017-04-22 07:34 | PN ---
DATE: 04/22/2017 PULMONARY NOTE SUBJECTIVE: The patient appears comfortable this morning. She is not short of breath at rest. PHYSICAL EXAMINATION: VITAL SIGNS: Last temperature recorded is 99.4. Pulse this morning is approximately 80, respirations 18/20, blood pressure 109/64. Oxygen saturation on nasal cannula is 96-97%. HEENT: Normocephalic, atraumatic. No JVD. CARDIOVASCULAR: Systolic ejection murmur at the lower left sternal border. No S3 gallop. LUNGS: Decreased breath sounds at the bases. Minimal/less rhonchi. No wheezing. EXTREMITIES: The left upper extremity is in a sling. The lower extremities show mild edema. There is no cyanosis or clubbing. Calves are nontender to palpation. GI: Abdomen is soft, nontender and nondistended. Bowel sounds are positive. SKIN: No acute rash. NEUROLOGIC: Limited at the present time. IMPRESSION: 1. Advanced chronic obstructive pulmonary disease. 2. Atelectasis versus pneumonia - right base. 3. Left humeral fracture, status post fall at home. 4. Anemia. 5. Coronary artery disease. PLAN: The patient appears comfortable this morning. She is not short of breath at rest. She does state to feeling much better overall. On physical exam, there is no significant bronchospasm noted. In addition, there is no significant alveolar-arterial gradient. I will continue with the current pulmonary medications for now. The patient has been changed to oral antibiotic therapy. Temperatures are resolving. There is no leukocytosis. Clinical status of the patient is certainly improved - compared to the initial presentation. However, the future status/prognosis for this elderly patient does remain guarded. I will discuss the above with the attending physician. Ludwin Sanchez MD MTDD
[2017-04-22 08:09] VITALS: BP 126/69; PULSE 74; RESP 18; TEMP 97.8; O2SAT 97
--- NOTE | 2017-04-22 08:38 | CP.PCM.PN ---
Subjective - Date & Time of Evaluation Date of Evaluation: 04/22/17 Time of Evaluation: 08:00 - Subjective Subjective: Patient is seen this morning. She is sitting up in the bed with sling on left arm. Objective - Vital Signs/Intake and Output Vital Signs (last 24 hours): Temp Pulse Resp BP Pulse Ox 97.8 F 74 18 126/69 97 04/22/17 07:30 04/22/17 07:30 04/22/17 07:30 04/22/17 07:30 04/22/17 07:30 Intake and Output: 04/22/17 04/22/17 06:59 18:59 Output Total 0 Balance 0 - Medications Medications: Current Medications Acetaminophen (Tylenol 325mg Tab) 650 mg PO Q4H PRN PRN Reason: Fever >100.4 F Last Admin: 04/19/17 15:41 Dose: 650 mg Acetaminophen (Tylenol 325mg Tab) 650 mg PO Q4H PRN PRN Reason: Pain, moderate (4-7) Last Admin: 04/21/17 21:47 Dose: 650 mg Albuterol/Ipratropium (Duoneb 3 Mg/0.5 Mg (3 Ml) Ud) 3 ml IH [id number] [facility] Last Admin: 04/22/17 07:14 Dose: 3 ml Budesonide (Pulmicort Respules) 0.5 mg IH [id number] [facility] Last Admin: 04/22/17 07:15 Dose: 0.5 mg Carvedilol (Coreg) 3.125 mg PO BID [facility] Last Admin: 04/21/17 18:41 Dose: 3.125 mg Cefpodoxime Proxetil (Vantin) 200 mg PO Q12 [facility] Clonazepam (Klonopin) 1 mg PO 1200,2200 [facility] Last Admin: 04/21/17 21:47 Dose: 1 mg Docusate Sodium (Colace) 100 mg PO BID [facility] Last Admin: 04/21/17 18:41 Dose: 100 mg Ferrous Sulfate (Feosol) 324 mg PO BID [facility] Last Admin: 04/21/17 18:41 Dose: 324 mg Fludrocortisone Acetate (Florinef) 0.1 mg PO DAILY [facility] Last Admin: 04/21/17 11:04 Dose: 0.1 mg Folic Acid (Folic Acid) 1 mg PO DAILY [facility] Last Admin: 04/21/17 11:04 Dose: 1 mg Furosemide (Lasix) 20 mg PO DAILY [facility] Last Admin: 04/21/17 11:04 Dose: 20 mg Isosorbide Mononitrate (Imdur Er) 30 mg PO DAILY [facility] Last Admin: 04/21/17 11:04 Dose: 30 mg Methylphenidate HCl (Ritalin) 5 mg PO 0800,1400 [facility] Last Admin: 04/21/17 14:56 Dose: 5 mg Risperidone (Risperdal Tab) 0.[address] [facility] PRN Reason: Protocol Last Admin: 04/21/17 21:51 Dose: Not Given Tiotropium [place] (Spiriva) 18 mcg INH DAILY [facility] Last Admin: 04/21/17 11:03 Dose: 18 mcg Venlafaxine HCl (Effexor Xr) 37.5 mg PO BID [facility] Last Admin: 04/21/17 18:41 Dose: 37.5 mg - Labs Labs: 04/21/17 06:41 04/21/17 06:41 PT 15.1 SECONDS (9.4-12.5) H 04/18/17 20:05 INR 1.32 (0.93-1.08) H 04/18/17 20:05 APTT 27.3 Seconds (25.1-36.5) 04/18/17 20:05 - Constitutional Appears: No Acute Distress - Head Exam Head Exam: ATRAUMATIC, NORMOCEPHALIC - Respiratory Exam Respiratory Exam: Clear to Ausculation Bilateral, NORMAL BREATHING PATTERN - Cardiovascular Exam Cardiovascular Exam: +S1, +S2 - GI/Abdominal Exam GI & Abdominal Exam: Soft, Normal Bowel Sounds. absent: Tenderness - Extremities Exam Additional comments: fracture left humerus - Neurological Exam Neurological Exam: Alert, Awake, Oriented x3 Assessment and Plan - Assessment and Plan (Free Text) Assessment: Left humerus fracture UTI Depression/anxiety HTN ASHD Cerebrovascular disease Plan: Patient has arm in sling for left humerus fracture. She will continue physical therapy. Urine culture growing strep gallolyticus and ss. pasteurian. This could possibly be due to contamination. Straight cath of urine has been ordered. Once urinalysis and urine culture are sent, patient can go to [facility] for rehab. Discharge meds: Albuterol/Ipratropium (Duoneb 3 Mg/0.5 Mg (3 Ml) Ud) 3 ml IH [id number] HI Budesonide (Pulmicort Respules) 0.5 mg IH [id number] HI Carvedilol (Coreg) 3.125 mg PO BID [facility] Cefpodoxime Proxetil (Vantin) 200 mg PO Q12 HI Clonazepam (Klonopin) 1 mg PO 1200,2200 HI Docusate Sodium (Colace) 100 mg PO BID HI Ferrous Sulfate (Feosol) 324 mg PO BID [facility] Fludrocortisone Acetate (Florinef) 0.1 mg PO DAILY [facility] Folic Acid (Folic Acid) 1 mg PO DAILY [facility] Furosemide (Lasix) 20 mg PO DAILY [facility] Isosorbide Mononitrate (Imdur Er) 30 mg PO DAILY [facility] Methylphenidate HCl (Ritalin) 5 mg PO 0800,1400 [facility] Risperidone (Risperdal Tab) 0.5 mg PO HS [facility] Tiotropium [place] (Spiriva) 18 mcg INH DAILY [facility] Venlafaxine HCl (Effexor Xr) 37.5 mg PO BID [facility] We will followup patient at [facility]
[2017-04-22 09:29] LABS: URINE BILIRUBIN NEGATIVE (NEGATIVE); URINE BLOOD NEGATIVE (NEGATIVE); URINE GLUCOSE (UA) NEGATIVE (NEGATIVE); URINE LEUKOCYTE ESTERASE MODERATE Leu/uL (NEGATIVE); URINE PROTEIN NEGATIVE mg/dL (<30 mg/dL); URINE UROBILINOGEN 0.2 E.U./dL (<1 E.U./dL)
[2017-04-22 09:32] LABS: URINE APPEARANCE CLEAR (CLEAR); URINE COLOR YELLOW (YELLOW)
[2017-04-22 09:36] LABS: URINE RBC 0 - 2 /hpf (0-2); URINE WBC 15 - 20 /hpf (0-6)
[2017-04-22 09:39] LABS: URINE AMORPHOUS SEDIMENT FEW; URINE BACTERIA MANY (NEG)
[2017-04-22] MEDS ORDERED: Cefpodoxime (Vantin) 200 mg Tab PO SCH (10:00)
[2017-04-22] MEDS: Venlafaxine 37.5 mg ER Cap PO SCH (10:20)
[2017-04-22] MEDS: Tiotropium 18 mcg Cap For Inhalation INH SCH (10:20)
--- NOTE | 2017-04-23 09:04 | PQF PNEUMO ---
This form is a permanent part of the medical record Doctor, Pt admitted for left humerus fracture. CXR on 04/18 showing atelectasis vs. early pneumonia. Is pneumonia ruled in or ruled out? Clarification of your documentation is requested to better reflect the severity of illness and intensity of treatment of your patient. Indicators present [x] Documented diagnosis of pneumonia [x] X-ray findings: [] Positive Sputum cultures [] Cough w/ fever [] Abnormal lungs sounds [] Poor gag reflex [] Speech consults/swallow evaluation [] Vent dependence [] Other: [] Location in the medical record that reflects the above clinical findings: [] Treatment Provided: [] PHYSICIAN'S RESPONSE Based on your medical judgment of the clinical indicators outlined above, are you treating this patient for a known or suspected: [] Aspiration pneumonia [] Community acquired pneumonia [] Ventilator associated pneumonia [] Viral pneumonia [] Bacterial pneumonia Please specify organism: [] [] Other, please indicate [x] If Unable to Determine, please check the box, sign and date. Present On Admission (POA) Indicator: [x] Present at the time of admission [] Not present at the time of admission [] Clinically Undetermined In responding to this query, please exercise your independent professional judgment. The fact that a question is asked does not imply that any particular answer is desired or expected. Thank you for your clarification on this documentation. 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
--- NOTE | 2017-04-29 20:06 | DS ---
HISTORY OF PRESENT ILLNESS: This is an 87-year-old female with history of atherosclerotic heart disease, chronic obstructive pulmonary disease, arthritis, depression, anxiety, and hypertension who fell at home and was taken to the Emergency Room at [facility]. She was found to have a fracture of her left humerus as well as urinary tract infection and required admission. She was sent to the [facility] for admission. Her arm was placed in a sling. She has also recent history of frequent falls. HOSPITAL COURSE: Patient was seen by Dr. Villatoro, who is an orthopedic surgeon, for the left humerus fracture. Surgery was not advised. Patient was started on physical therapy and her arm was placed in a sling. She was recommended to go to rehab for further physical therapy. For the urinary tract infection, urine culture was sent. Patient was started on IV Rocephin. Chest x-ray also showed possibility of atelectasis versus pneumonia. She was seen by Dr. Sanchez who is a bore mill operator and she was placed on respiratory treatment via nebulizer for her COPD. Dr. Sen was also consulted for history of depression and anxiety. Initially, urine culture grew Streptococcus gallolyticus and Staphylococcus pasteuri. Repeat urine was sent and patient was discharged to [facility] for a rehab. DISCHARGE DIAGNOSES: Left humerus fracture, urinary tract infection, atelectasis, chronic obstructive pulmonary disease, hypertension, atherosclerotic heart disease, arthritis. DISCHARGE MEDICATIONS: Advair, Colace 100 mg twice a day, Coreg 3.125 mg twice a day, Effexor 37.5 mg twice a day, iron 324 mg twice a day, Florinef 0.1 mg daily, folic acid 1 mg daily, Imdur 30 mg daily, Klonopin 1 mg twice a day, Lasix 20 mg daily, Ritalin 5 mg twice a day, Risperdal 0.5 mg at night, Spiriva once daily, Vantin 200 mg twice a day for seven days. FOLLOWUP: Patient will be followed up at [facility] for rehab. Ghulam Carvalho MD
== END 2017-04-22 16:25 | DRG 562 ==
LOC: ED 19:00 → ERH 21:16 → 3RSO 22:55 → 5RNO 04-20 21:57
PROVIDERS: ADMIT Internal Medicine; ATTEND Internal Medicine
DX: S42.212A Unspecified displaced fracture of surgical neck of left humerus, initial encounter for closed fracture (principal); J18.9 Pneumonia, unspecified organism; J98.11 Atelectasis; N39.0 Urinary tract infection, site not specified; F33.9 Major depressive disorder, recurrent, unspecified; I95.9 Hypotension, unspecified; D64.9 Anemia, unspecified; J44.9 Chronic obstructive pulmonary disease, unspecified; I25.10 Atherosclerotic heart disease of native coronary artery without angina pectoris; I10 Essential (primary) hypertension; F43.10 Post-traumatic stress disorder, unspecified; H91.90 Unspecified hearing loss, unspecified ear; Z66 Do not resuscitate; I67.9 Cerebrovascular disease, unspecified; R26.9 Unspecified abnormalities of gait and mobility; M19.90 Unspecified osteoarthritis, unspecified site; Y93.01 Activity, walking, marching and hiking; W01.0XXA Fall on same level from slipping, tripping and stumbling without subsequent striking against object, initial encounter; Y92.009 Unspecified place in unspecified non-institutional (private) residence as the place of occurrence of the external cause; Z99.81 Dependence on supplemental oxygen; Z87.891 Personal history of nicotine dependence

== ENCOUNTER 2017-06-06 11:35 | Emergency (ER) | payer MEDICARE ==
[2017-06-06 11:45] VITALS: BMI 17.2
[2017-06-06 11:47] VITALS: BP 0/0; PULSE 0; RESP 0; O2SAT 0
--- NOTE | 2017-06-06 11:54 | ED PDOC ---
Arrival/HPI - General Chief Complaint: Cardiac Arrest Time Seen by Provider: 06/06/17 11:50 Historian: Family, EMS - History of Present Illness Narrative History of Present Illness (Text): 06/06/17 11:31 87 year old female, whose history includes COPD, presents to the Emergency department via BLS in cardiac arrest. Patient was last seen alive at 11:00 this morning, emergency services were called at that time due to perceived seizure; patient was not given CPR until 10 minutes ago. EMS reports patient had previously expressed wishes to be DNR but had not yet officially filed so as per patient's daughter's request, CPR was stopped in the field. Patient arrived to the Emergency department with no pulse. Emergency department physician confirmed with patient's daughter that the patient does not wish to be resuscitated. Time/Duration: Prior to Arrival Symptom Onset: Sudden Symptom Course: Other (Patient pronounced upon arival to the Emergency department) Context: Home Past Medical History - Provider Review Nursing Documentation Reviewed: Yes - Infectious Disease Hx of Infectious Diseases: None - Tetanus Immunization Tetanus Immunization: Unknown - Reproductive Menopause: Yes - Cardiac Hx Hypertension: Yes - Pulmonary Hx Chronic Obstructive Pulmonary Disease (COPD): Yes - Neurological Hx Transient Ischemic Attacks (TIA): No - HEENT Hx HEENT Disorder: No - Renal Hx Renal Disorder: No - Endocrine/Metabolic Hx Diabetes Mellitus Type 1: No Hx Diabetes Mellitus Type 2: No - Hematological/Oncological Hx Blood Disorders: No - Integumentary Hx Dermatological Disorder: No - Musculoskeletal/Rheumatological Hx Falls: Yes - Gastrointestinal Hx Gastrointestinal Disorders: No - Genitourinary/Gynecological Hx Genitourinary Disorders: No Hx Sexually Transmitted Diseases: No Hx Urinary Tract Infection: Yes - Psychiatric Hx Anxiety: Yes Hx Depression: Yes Hx Substance Use: No - Surgical History Hx Hysterectomy: Yes - Anesthesia Hx Anesthesia: Yes Hx Anesthesia Reactions: No Hx Malignant Hyperthermia: No - Suicidal Assessment Feels Threatened In Home Enviroment: No Family/Social History - Physician Review Nursing Documentation Reviewed: Yes Family/Social History: Unknown Family HX Smoking Status: Former Smoker Hx Alcohol Use: No Hx Substance Use: No Hx Substance Use Treatment: No Allergies/Home Meds Allergies/Adverse Reactions: Allergies No Known Allergies Allergy (Verified 06/06/17 11:47) Home Medications: Home Meds Medication Instructions Recorded Confirmed Carvedilol [Coreg] 3.125 mg PO BID 05/20/15 04/18/17 Isosorbide Mononitrate [Isosorbide 30 mg PO DAILY 05/20/15 04/18/17 Mononitrate ER] Fluticasone/Salmeterol 250/50 1 dsk IH DAILY 09/21/15 04/18/17 [Advair Diskus 250/50] Tiotropium [place] Inhaler 1 inhaler INH DAILY 09/21/15 04/18/17 [Spiriva Inhalation Handihaler Device] Fludrocortisone [Florinef] 0.1 mg PO DAILY 01/18/16 04/18/17 clonazePAM [Klonopin] 1 mg PO TID 01/19/16 04/18/17 Methylphenidate HCl [Ritalin] 5 mg PO BID 04/19/17 04/19/17 Venlafaxine HCl [Venlafaxine HCl 37.5 mg PO BID 04/19/17 04/19/17 ER] Review of Systems - Review of Systems Systems not reviewed;Unavailable: Other (Patient pronounced upon arival to the Emergency department) Physical Exam - Physical Exam Narrative Physical Exam (Text): 06/06/17 11:31 Patient does not have any signs of life. There are no heart sounds or respiratory sounds. Patient's core is cool. Patient's jaw is in rigor mortis. Physical Exam Limitations: Other (Patient pronounced upon arrival to the Emergency department) Vital Signs Reviewed: Yes Vital Signs Pulse Resp BP Pulse Ox 06/06/17 11:35 0 L 0 L 0/0 L 0 L Mental Status: No: Alert and Oriented X 3 - Systems Exam Pupils: No: PERRL Extroacular Muscles: No: EOMI Respiratory/Chest: No: Clear to Auscultation, Good Air Exchange Cardiovascular: No: Regular Rate and Rhythm Psychiatric: No: Alert, Oriented x 3, Normal Insight, Normal Concentration Medical Decision Making ED Course and Treatment: 06/06/17 11:31 Impression: 87 year old female presents to the Emergency department in cardiac arrest. Prior Visits: Notes and results from previous visits were reviewed. Patient was last seen in the emergency department on 04/18/17, was diagnosed with UTI and closed fracture of left proximal humerous, and was admitted to the hospital. Progress Notes: 06/06/17 11:31 Patient does not have any signs of life. There are no heart sounds or respiratory sounds. Patient's core is cool. Patient's jaw is in rigor mortis. 06/06/17 11:33 Time of : 11:33 - Scribe Statement The provider has reviewed the documentation as recorded by the Scribantonio Barboza All medical record entries made by the Scribe were at my direction and personally dictated by me. I have reviewed the chart and agree that the record accurately reflects my personal performance of the history, physical exam, medical decision making, and the department course for this patient. I have also personally directed, reviewed, and agree with the discharge instructions and disposition. Disposition/Present on Arrival - Present on Arrival Any Indicators Present on Arrival: No History of DVT/PE: No History of Uncontrolled Diabetes: No Urinary Catheter: No History of Decub. Ulcer: No History Surgical Site Infection Following: None - Disposition Have Diagnosis and Disposition been Completed?: Yes Diagnosis: on arrival, Cardiac arrest Disposition: WITH WITHOUT AUTOPSY Disposition Time: 12:22 (Time of 11:33AM) Patient Plan: Other Condition: Forms: [employer] (Maltese)
== END 2017-06-06 14:50 ==
LOC: ED 11:35
DX: I46.9 Cardiac arrest, cause unspecified (principal); I10 Essential (primary) hypertension; J44.9 Chronic obstructive pulmonary disease, unspecified; Z87.891 Personal history of nicotine dependence